=== PATIENT | female | born 1965 | race Two or more races ===

== ENCOUNTER 2024-10-20 20:58 | Emergency (ER) | payer MEDICAID, SELFPAY ==
[2024-10-20 21:05] VITALS: BP 187/75; PULSE 63; RESP 19; O2SAT 97; BMI 27.4
[2024-10-20 21:10] VITALS: PULSE 63; RESP 18; O2SAT 95
[2024-10-20 21:14] VITALS: TEMP 35.1
--- NOTE | 2024-10-20 21:53 | EDNOTE_ITS ---
ED General RME/HPI General Chief complaint: General Adult/Misc Complain Stated complaint: LOW BLOOD SUGAR Time Seen by Provider: 10/20/24 22:04 Source: patient and EMS Arrival date/time: 10/20/24 20:58 Mode of arrival: EMS Limitations: no limitations RME / HPI RME / HPI narrative: Dr. Carrera's Main ED Evaluation: 59-year-old female EH who presents to the emergency department for evaluation due to hypoglycemic episode. Per EMS report, at approximately 1900, the patient took 50 units of insulin and did not have any PO intake after. Blood sugar check on scene was 42. She was given D10 and then brought here to be checked out. Patient states she felt confused around 1930, was sweating, and was unable to move. She reports associated mild headache, abdominal pain, and shortness of breath. She denies any chest pain, N/V/D, fever, chills, cough, UTI symptoms or any other associated symptoms. Denies any tobacco or alcohol use. No known allergies. Past medical history: Hypertension Diabetes Mellitus 2 Hypercholesteremia Gallstones s/p Laparoscopic cholecystectomy by Dr. Hussein on 07/24/21 Social history: Nonsmoker. Nondrinker. No illicit drug use. PCP: [facility] Related Data Home Medications ?Medication ?Instructions ?Recorded ?Confirmed atenolol 25 mg tablet (Tenormin) 100 mg PO QAM #0 tabs 05/11/14 06/16/21 benazepril 20 mg tablet (Lotensin) 40 mg PO BID #0 tabs 10/07/14 06/16/21 hydrochlorothiazide 25 mg tablet 25 mg PO QAM #0 tabs 10/07/14 06/16/21 atorvastatin 10 mg tablet 10 mg PO QDAY 06/16/21 06/16/21 insulin glargine 100 unit/mL (3 50 unit subcut QAM 06/16/21 07/23/21 mL) subcutaneous pen (Basaglar KwikPen U-100 Insulin) insulin glargine 100 unit/mL (3 70 unit subcut QPM 06/16/21 07/23/21 mL) subcutaneous pen (Basaglar KwikPen U-100 Insulin) sitagliptin phosphate 50 1 tab PO BID 06/16/21 07/23/21 mg-metformin 1,000 mg tablet (Janumet) Previous Rx's ?Medication ?Instructions ?Recorded cephalexin 500 mg capsule 500 mg PO TID #21 caps 06/13/23 Allergies Allergy/AdvReac Type Severity Reaction Status Date / Time No Known Allergies Allergy Verified 05/15/23 23:33 Review of Systems Review of Systems Systems Reviewed: All systems reviewed, normal except as documented Past Medical History Past Medical History NEUROLOGIC: Negative Neurological Disorders or Seizures CARDIAC: Positive Cardiac Disorders and Hypertension; Negative Congestive Heart Failure RESPIRATORY: Negative Chronic Obstructive Pulmonary Disease (COPD) GASTROINTESTINAL: Positive Gastrointestinal Disorders, Hepatitis, Gall Bladder Disease and Obesity GENITOURINARY: Negative Genitourinary Disorders or Renal Disease REPRODUCTIVE: Positive Previous Pregnancies MUSCULOSKELETAL: Positive Musculoskeletal Disorders ENT: Negative Cataracts ENDOCRINE: Positive Endocrine Disorders and Diabetes Mellitus Type 2; Negative Diabetes Mellitus Type 1 HEMATOLOGIC: Negative Blood Disorders OTHER HISTORY: Positive Hospitalization and Chicken Pox; Negative Falls, Blood Transfusions, Blood Transfusion Reaction, Anesthesia Reactions, Organ Transplant, MRSA or Cancer Family History FAMILY HISTORY: Positive Family Cardiac Disorders; Negative Family Anesthesia Reaction Surgical History SURGICAL: Positive Section; Negative Cardiac Surgery, Endocrine Surgery, Ear Surgery, Eye Surgery, Oral Surgery, Throat Surgery, Abdominal Surgery, Neurologic Surgery or Organ Transplant Social History SMOKING STATUS: Never smoker SUBSTANCE USE: does not use ED Exam Narrative Physical exam: GENERAL: Patient is alert awake oriented x3 under no distress, laying down comfortably at 30-45?; does not look ill/ toxic. Patient has good eye contact. Patient is cooperative. VITALS: All vitals were reviewed and the pulse ox is 97% on room air, which is normal according to my interpretation. HEENT: Normocephalic, atraumatic and nontender. Pupils are equal and reactive to light and accommodation. Oral mucosa are moist. NECK: Supple, nontender, no meningismus, no JVD. CHEST: Nontender on palpation, no deformity and no crepitus. CARDIOVASCULAR: Heart regular rhythm no murmur or gallop rub or extra beats; not tachycardic. LUNGS: Clear to auscultation bilaterally with symmetrical chest rise. No laboring tachypnea or wheezing. No intercostal subcostal retraction. No rales and no rhonchi. ABDOMEN: Soft, flat, nontender at all, no guarding or rebound tenderness. There are no abnormal masses palpated. No pulsatile masses or bruits. Active and normal bowel sounds. GENITALIA: Not examined. RECTAL EXAM: Not done. EXTREMITIES: Nontender. No edema. No cyanosis. Patient is able to move all 4 extremities well. SKIN: Warm and dry, no rashes noted. MUSCULOSKELETAL: No lumbar or midline bony tenderness. There is no CVA tenderness. No paraspinal muscle spasm or tenderness. NEURO: Cranial nerves II through XII grossly intact. There is no focalization. GCS is 15. PSYCHIATRIC: Patient is in normal mood and affect, cooperative. General Limitations: Present no limitations Course Course Course Narrative: 2233: Sepsis alert initiated. Orders made at this time are congruent with ED Adult Sepsis Order List. Re-evaluation is to be completed. CXR is ordered for determining the etiology of shortness of breath. Quality Measures Current suspected stage: ruled out Possible source: unknown Blood cultures ordered: yes Antibiotic ordered: No Pertinent labs: 10/20/24 22:50 Lactic Acid 1.5 mMol/L (0.4-2.0) Procalcitonin 0.13 ng/ml (0.0-0.49) sepsis Orders Category Date Time Status EKG (ED ONLY) *Do not use* NOW Care 10/20/24 22:34 Completed Initiate Warming Therapy NOW Care 10/20/24 22:35 Active Insert IV NOW Care 10/20/24 22:34 Active EKG (ED Only) Stat Exams 10/20/24 22:34 Ordered XR chest 1V portable Stat Exams 10/20/24 22:34 Completed B-Type Natriuretic Peptide Stat Lab 10/20/24 22:50 Completed Blood Culture (Lab) Stat Lab 10/20/24 23:00 Received CBC Stat Lab 10/20/24 22:50 Completed Comprehensive Metabolic Panel Stat Lab 10/20/24 22:50 Completed Creatine Kinase Stat Lab 10/20/24 22:50 Completed Lactate (Lactic Acid) Stat Lab 10/20/24 22:50 Completed Procalcitonin Stat Lab 10/20/24 22:50 Completed Troponin I Stat Lab 10/20/24 22:50 Completed UA, C/S IF [Urinalysis, C/S if Indicated] Stat Lab 10/20/24 22:43 Completed Urine Culture Stat Lab 10/20/24 22:43 Received Vital Signs Vital signs: Vital Signs Pulse Rate 63 10/20/24 21:05 Respiratory Rate 19 10/20/24 21:05 Blood Pressure 187/75 H 10/20/24 21:05 Pulse Oximetry (%) 97 10/20/24 21:05 Oxygen Delivery Method Room Air 10/20/24 21:05 Procedures -ED EKG Interpretation #1: Date of EK10/20/24 Rate: 61 Interpretation: Interpreted by me EKG Impression: Normal sinus rhythm, No acute ST-T changes, No ectopy, Normal intervals and Normal axis Additional EKG comment: First-degree AV block. Possible old inferior wall [place] Patient data External records reviewed:: [facility] previous records and EMS form Clinical information provided by:: patient and EMS Social determinants that could affect healthcare access:: none Patient has the following chronic illnesses:: Hypertension Diabetes Mellitus 2 Hypercholesteremia Gallstones s/p Laparoscopic cholecystectomy by Dr. Hussein on 07/24/21 How is presenting disease/condition affected by chronic disease/condition?: u neffected by Evaluation data The following diagnostics were reviewed and interpreted by me:: lab results Lab and/or radiology exams considered but not ordered:: none Interpretation Summary: See narrative Medications Medications considered but not ordered:: None Medication administrations:: As above, if any Consultations Consultation(s) initiated? (list below): No Diagnosis Differential Diagnosis ED Complaint MDM: hypoglycemia, TIA, CVA, UTI, pneumonia, sepsis Most likely diagnosis given after review of the tests above:: see below Admission Indicated Admission indicated?: not indicated Explain why admission is indicated or not indicated:: See MDM narrative. Admission Request Was there a request for admission?: No Disposition Plan Disposition Plan: Discharge Discharge Attestation Discharge Attestation: The patient and all family members were given an opportunity to ask questions and understood the discharge instructions. Discharge instructions specifically effects, indications for sooner follow up or return to the emergency department, and the expected course of current diagnosis. Patient condition: Stable Medical Decision Making MDM Narrative MDM Narrative: Scribe Attestation: 10/20/24 Janae Dangelo am scribing for and in the presence of Dr. Carrera. Patient was brought in by ambulance from home due to altered mental status just prior to arrival. Patient states that she regularly takes 50 units of Basaglar insulin twice a day; she states that the second dose she takes it at 7 PM. She did take that but she forgot to eat afterwards. About 730 or close to 8:00 she started feeling diaphoresis confused and she could not move and she could barely talk. The paramedics were called and they found her blood sugar to be at 41 therefore they gave her D10 W and they brought her in upon arrival here in the emergency room her blood sugar was 156. Patient states that she was perfectly well before this happened and this is the first time that she has hypoglycemic episode in her life. She says that she always eats after each insulin but today she forgot. At the time she developed also a headache which right now is very little. She denies any chest pain or abdominal pain, she denies any nausea vomiting or diarrhea or fever chills. She denies coughing but she got short of breath. She denies UTI symptoms. Her past medical history is positive for hypertension and diabetes. She denies smoking or alcohol. We gave her a sandwich and also orange juice and she says that she is feeling much better and she is back to her normal. Patient is alert awake oriented x 3 under no distress and does not look ill or toxic. At 10:33 PM, patient's nurse informs me that her rectal temperature is even less than before. The initial rectal temperature was 95.2 upon arrival and now it is down to 94.8 again rectally. Therefore, I immediately announced sepsis overhead and started the workup. At 2:50 AM, all her workup came back negative except borderline elevation of her BUN and creatinine at 34 and 1.4 respectively; therefore patient will be discharged home with instructions that she needs to eat immediately after taking her insulin and also drink lots of water. She understands me very well. Her temperature is up to 98.0 right now. Provider Notation: Although this document has been carefully reviewed, there may still be some phonetic and other typographical errors. These errors are purely grammatical due to imperfections in the software program and should not be construed in any way to compromise the substance of the patient's medical care during this visit. Differential Diagnosis Differential Diagnosis: hypoglycemia, TIA, CVA, UTI, pneumonia, sepsis Lab Data 10/20/24 22:50 10/20/24 22:50 Labs: Lab Results 10/20/24 10/20/24 Range/Units 22:43 22:50 WBC 9.3 (3.6-11.0) Thou/mm3 RBC 3.52 L (4.00-5.20) Miln/mm3 Hgb 10.4 L (12.0-16.0) g/dL Hct 31.9 L (36.0-46.0) % MCV 91 (80-100) fL MCH 29.5 (25.0-35.0) pg MCHC 32.6 (31.0-37.0) g/dl RDW Std Deviation 43.3 (36.4-46.3) fL Plt Count 217 (140-440) Thou/mm3 Neut % (Auto) 72 (37-80) % Lymph % (Auto) 17 (10-50) % Mitchell % (Auto) 8 (0-12) % Eos % (Auto) 2 (0-10) % Baso % (Auto) 1 (0-2.5) % Neut # (Auto) 6.7 (1.8-7.7) Thou/mm3 Lymph # (Auto) 1.6 (1.0-4.8) Thou/mm3 Mitchell # (Auto) 0.7 (0.0-0.8) Thou/mm3 Eos # (Auto) 0.2 (0.0-0.5) Thou/mm3 Baso # (Auto) 0.1 (0.0-0.2) Thou/mm3 Immature Gran # (Auto) 0.10 H (0.00-0.00) Thou/mm3 Absolute Nucleated RBC 0.00 (0.00-0.00) Thou/mm3 Immature Gran % 1 H (0-0) % Nucleated RBC % 0 (0) /100 WBC Sodium 138 (136-145) mMol/L Potassium 4.1 (3.4-5.1) mMol/L Chloride 107 (98-107) mMol/L Carbon Dioxide 24.5 (20.0-31.0) mMol/L Anion Gap 7 (7-16) BUN 34 H (9-23) mg/dL Creatinine 1.4 H (0.6-1.3) mg/dL Estim Creat Clear Calc 38.6 L (>60) mL/min eGFR 43 L (60 - ) See Note BUN/Creatinine Ratio 24 H (12-20) Ratio Glucose 77 (74-106) mg/dL Calculated Osmolality 282 (275-295) Lactic Acid 1.5 (0.4-2.0) mMol/L Calcium 9.5 (8.3-10.6) mg/dL Corrected Calcium 9.5 (8.5-10.1) mg/dL Total Bilirubin 0.4 (0.3-1.2) mg/dL AST 22 (0-34) U/L ALT 21 (10-49) U/L Alkaline Phosphatase 127 H (46-116) U/L Total Creatine Kinase 144 (34-171) U/L Troponin I < 0.020 (0.0-0.045) ng/mL B-Natriuretic Peptide 40 (0-100) pg/mL Total Protein 6.6 (5.7-8.2) gm/dL Albumin 4.5 (3.4-4.8) gm/dL Globulin 2.1 L (2.3-3.5) gm/dL Albumin/Globulin Ratio 2.1 (1.2-2.2) Procalcitonin 0.13 (0.0-0.49) ng/ml Ur Collection Type Clean Catch Urine Color Colorless A (Lt Yel-Yel) Urine Clarity Clear (Clear/Hazy) Urine pH 6.5 (5.0-7.0) Ur Specific [place] 1.013 (1.001-1.035) Urine Protein 2+ A (Neg - Trace) Urine Glucose (UA) 4+ A (Negative) Urine Ketones Negative (Negative) Urine Blood Negative (Negative) Urine Nitrite Negative (Negative) Urine Bilirubin Negative (Negative) Urine Urobilinogen (Auto) Negative (0.0-1.0) mg/dL Ur Leukocyte Esterase Negative (Negative) Urine RBC 1 (0-3) /hpf Urine WBC 15 H (0-5) /hpf Ur Squamous Epith Cells 0 (0-5) /hpf Urine Bacteria None (None) Hyaline Casts < 1 (0-1) /hpf Ur Culture Indicated? Yes Discharge Plan Plan Patient Disposition: HOME (Self Care) Prescriptions/Referrals Prescriptions/Med Rec: No Action atenolol [Tenormin] 25 MG tablet 100 mg PO QAM Qty: 0 benazepril [Lotensin] 20 MG tablet 40 mg PO BID Qty: 0 hydrochlorothiazide 25 MG tablet 25 mg PO QAM Qty: 0 atorvastatin 10 mg Tablet 10 mg PO QDAY Janumet 50-1,000 mg Tablet 1 tab PO BID Basaglar KwikPen U-100 Insulin 100 unit/mL (3 mL) insulin pen 70 unit SUBCUT QPM Patient Comments: INJECT 40 UNITS SUBCUTANEOUSLY EVERY MORNING AND 70 UNITS EVERY EVENING Basaglar KwikPen U-100 Insulin 100 unit/mL (3 mL) insulin pen 50 unit SUBCUT QAM Patient Comments: INJECT 40 UNITS SUBCUTANEOUSLY EVERY MORNING AND 70 UNITS EVERY EVENING cephalexin 500 mg capsule 500 mg PO TID Qty: 21 0RF Referrals: Wally Lorenzo MD [Primary Care Provider] - 10/23/24 10:00 am Problem List Clinical Impression: Hypoglycemia Patient/Caregiver Discharge Instructions Education Materials: Hypoglycemia (Low Blood Sugar) Print Language: Luxembourgish Stand Alone Forms: Marilyn Award Info., Patient Portal Info Letter
[2024-10-20 22:33] VITALS: BP 184/79; PULSE 89; RESP 16; TEMP 34.9; O2SAT 100
--- NOTE | 2024-10-20 22:34 | XR_ITS ---
Examination: AP chest single view Technique one AP portable upright chest single view Exam date and time: October 20, 2024 11:16 PM Comparison December 29, 2023 Indications: Coughing shortness of breath today. Findings: Mild enlargement cardiac contour Moderate central vascular congestion. No lobar pneumonia or pulmonary edema Moderate osteopenia Impression: Moderate central vascular congestion
[2024-10-20 22:36] VITALS: TEMP 34.9
[2024-10-20 22:51] LABS: Collection Type, Urine Clean Catch; Squamous Epithelial Cell,Urine 0 /hpf (0-5)
[2024-10-20 23:04] LABS: Bilirubin,Urine Negative (Negative); Blood,Urine Negative (Negative); Clarity,Urine Clear (Clear/Hazy); Color,Urine Colorless (Lt Yel-Yel); Glucose, Urine 4+ (Negative); Hyaline Casts,Urine < 1 /hpf (0-1); Ketones,Urine Negative (Negative); Leukocyte Esterase,Urine Negative (Negative); Nitrite,Urine Negative (Negative); PH,Urine 6.5 (5.0-7.0); Protein,Urine 2+ (Neg - Trace); RBC,Urine 1 /hpf (0-3); Specific Gravity,Urine 1.013 (1.001-1.035); Urobilinogen,Urine Negative mg/dL (0.0-1.0); WBC,Urine 15 /hpf (0-5)
[2024-10-20 23:07] LABS: Lactate (Lactic Acid) 1.5 mMol/L (0.4-2.0)
[2024-10-20 23:14] LABS: Culture Indicated,Urine Yes
[2024-10-20 23:17] LABS: Basophils # (Auto) 0.1 Thou/mm3 (0.0-0.2); Basophils % (Auto) 1 % (0-2.5); Eosinophils # (Auto) 0.2 Thou/mm3 (0.0-0.5); Eosinophils % (Auto) 2 % (0-10); Hematocrit 31.9 % (36.0-46.0); Hemoglobin 10.4 g/dL (12.0-16.0); Immature Granulocytes % (Auto) 1 % (0-0); Lymphocytes # (Auto) 1.6 Thou/mm3 (1.0-4.8); Lymphocytes % (Auto) 17 % (10-50); Mean Corpuscular HGB Conc 32.6 g/dl (31.0-37.0); Mean Corpuscular Hemoglobin 29.5 pg (25.0-35.0); Mean Corpuscular Volume 91 fL (80-100); Monocytes # (Auto) 0.7 Thou/mm3 (0.0-0.8); Monocytes % (Auto) 8 % (0-12); Neutrophils # (Auto) 6.7 Thou/mm3 (1.8-7.7); Neutrophils % (Auto) 72 % (37-80); Nucleated Red Blood Cell % 0 /100 WBC (0); Platelet Count 217 Thou/mm3 (140-440); RDW Standard Deviation 43.3 fL (36.4-46.3); Red Blood Count 3.52 Miln/mm3 (4.00-5.20); White Blood Count 9.3 Thou/mm3 (3.6-11.0)
[2024-10-20 23:38] LABS: Alanine Aminotransferase 21 U/L (10-49); Albumin, Serum 4.5 gm/dL (3.4-4.8); Albumin/Globulin Ratio 2.1 (1.2-2.2); Alkaline Phosphatase 127 U/L (46-116); Anion Gap 7 (7-16); Aspartate Amino Transferase 22 U/L (0-34); BUN/Creatinine Ratio 24 Ratio (12-20); Bilirubin,Total 0.4 mg/dL (0.3-1.2); Blood Urea Nitrogen 34 mg/dL (9-23); Calcium 9.5 mg/dL (8.3-10.6); Calcium (Corrected) 9.5 mg/dL (8.5-10.1); Carbon Dioxide 24.5 mMol/L (20.0-31.0); Chloride 107 mMol/L (98-107); Creatine Kinase 144 U/L (34-171); Creatinine (Component) 1.4 mg/dL (0.6-1.3); Estimated Creatinine Clearance 38.6 mL/min (>60); Globulin 2.1 gm/dL (2.3-3.5); Glucose 77 mg/dL (74-106); Osmolality,Calculated 282 (275-295); Potassium 4.1 mMol/L (3.4-5.1); Sodium 138 mMol/L (136-145); Total Protein 6.6 gm/dL (5.7-8.2); Troponin I < 0.020 ng/mL (0.0-0.045); eGFR 43 See Note
[2024-10-20 23:44] LABS: B-Type Natriuretic Peptide 40 pg/mL (0-100); Procalcitonin 0.13 ng/ml (0.0-0.49)
[2024-10-21] VITALS: BP 176/66; PULSE 70; RESP 16; TEMP 36.4; O2SAT 97
[2024-10-21 01:00] VITALS: BP 163/58; PULSE 77; RESP 16; TEMP 36.7; O2SAT 99
--- NOTE | 2024-10-21 01:10 | PC.NURSE ---
Pt oral temp 98.[address] Carrera, SIDDHARTHA sanchez and give Pt warm blankets
[2024-10-21] MEDS: ACETAMINOPHEN 500 MG TABLET 1000 MG PO (03:06)
[2024-10-21 03:10] VITALS: BP 177/65; PULSE 61; RESP 16; TEMP 36.8; O2SAT 99
== END 2024-10-21 03:09 | disposition home or self-care (01) ==
PROVIDERS: Emergency Provider Emergency Medicine; PCP Family Medicine
DX: E11.649 Type 2 diabetes mellitus with hypoglycemia without coma (principal); I44.0 Atrioventricular block, first degree; I10 Essential (primary) hypertension; E78.00 Pure hypercholesterolemia, unspecified; Z79.84 Long term (current) use of oral hypoglycemic drugs; Z79.4 Long term (current) use of insulin
CPT/HCPCS: 36415; 71045; 80053; 81001; 82550; 83605; 83880; 84145; 84484; 85025; 87040; 87086; 93005; 99283; A9270

== ENCOUNTER 2025-09-14 05:32 | Emergency (ER) | payer BC, SELFPAY ==
[2025-09-14] VITALS (8 sets, daily range): BP systolic 178–249; BP diastolic 63–95; PULSE 78–88; RESP 15–33; TEMP 36.5–36.8; O2SAT 97–100; BMI 32.8
--- NOTE | 2025-09-14 05:37 | EKG_ITS ---
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
--- NOTE | 2025-09-14 06:07 | PD.EDADULT ---
ED General RME/HPI General Chief complaint: General Adult/Misc Complain Stated complaint: CHEST, NECK ,AND ABD PAIN Time Seen by Provider: 09/14/25 06:06 Arrival date/time: 09/14/25 05:32 RME / HPI RME / HPI narrative: Maureen is a 60 y/o female with PMHx of Insulin dependent type II DM, HLD and HTN who comes in for evaluation of acute onset of headache with associated nausea, weakness, rated 7 out of 10 while waking up to go use the restroom. Patient reports she was woke up to use the restroom and had no urinary symptoms, however felt weak using the restroom. She said she has not had symptoms like these before, and she has also complaining of some epigastric abdominal pain. Denies any blurry vision or changes with vision at this time. She has not taken any medicines to help her symptoms. She says her blood pressure usually runs in the 180s to 200s at home. She says she sees a provider at [facility] for [facility] medicines including her antihypertensives. She also takes insulin for diabetes. She says that her account manager education is Dr. Torres in [place] who did recent testing on her which was all normal. She denies throwing up. She says she was able to walk. She denies any family history of intracranial bleeding or CVA. She denies a history of stroke. She takes her medicines as prescribed. She has no other complaints at this time. Related Data Home Medications ?Medication ?Instructions ?Recorded ?Confirmed atenolol 25 mg tablet (Tenormin) 100 mg PO QAM #0 tabs 05/11/14 06/16/21 benazepril 20 mg tablet (Lotensin) 40 mg PO BID #0 tabs 10/07/14 06/16/21 hydrochlorothiazide 25 mg tablet 25 mg PO QAM #0 tabs 10/07/14 06/16/21 atorvastatin 10 mg tablet 10 mg PO QDAY 06/16/21 06/16/21 insulin glargine 100 unit/mL (3 50 unit subcut QAM 06/16/21 07/23/21 mL) subcutaneous pen (Basaglar KwikPen U-100 Insulin) insulin glargine 100 unit/mL (3 70 unit subcut QPM 06/16/21 07/23/21 mL) subcutaneous pen (Basaglar KwikPen U-100 Insulin) sitagliptin phosphate 50 1 tab PO BID 06/16/21 07/23/21 mg-metformin 1,000 mg tablet (Janumet) Previous Rx's ?Medication ?Instructions ?Recorded cephalexin 500 mg capsule 500 mg PO TID #21 caps 06/13/23 Allergies Allergy/AdvReac Type Severity Reaction Status Date / Time No Known Allergies Allergy Verified 09/14/25 05:37 Review of Systems Review of Systems Narrative Review of Systems: 12 point ROS reviewed and is otherwise negative unless stated directly in the HPI ED Exam Narrative Physical exam: General: AAOx3, NAD, HEENT: Moist mucous membranes, conjunctiva clear, EOMI, PERRLA, Cardiovascular: S1, S2, radial pulses +2 bilat, RRR Pulmonary: CTAB bilat no cough, no wheezing GI: Slight tenderness to palpitation upon epigastric region, no guarding, rigidity, rebound tenderness or distension Extremities: No presence of trace or pitting edema in lower extremities bilaterally, dorsalis pedis pulses +2 bilaterally Neuro: AAOx3, no focal motor or sensory deficits in the UE or LE bilat, finger to nose wnl, pt able to walk, heel to cruz wnl bilat, - rhomberg testing, able to ambulate Psych: Good judgement, thought and behavior Course Quality Measures none Orders Category Date Time Status EKG (ED ONLY) *Do not use* NOW Care 09/14/25 05:37 Completed Insert IV NOW Care 09/14/25 06:[address] head/brain wo con Stat Exams 09/14/25 06:23 Completed EKG (ED Only) Stat Exams 09/14/25 05:37 Draft XR chest 1V portable Stat Exams 09/14/25 06:32 Completed CBC Stat Lab 09/14/25 06:46 Completed CMP [Comprehensive Metabolic Panel] Stat Lab 09/14/25 06:46 Completed Drug Screen,Urine Stat Lab 09/14/25 06:50 Completed Lactic Acid [Lactate (Lactic Acid)] Stat Lab 09/14/25 08:10 Completed Mag [Magnesium] Stat Lab 09/14/25 06:46 Completed Troponin I Stat Lab 09/14/25 06:46 Completed Urinalysis, C/S if Indicated Stat Lab 09/14/25 06:50 Completed Acetaminophen Tab [Tylenol ES Tab] Med 09/14/25 06:31 Discontinued 1,000 mg PO X1 ONE Labetalol IV [Trandate IV] Med 09/14/25 06:26 Discontinued 10 mg IVP X1 ONE Lidocaine 2% Viscous [Xylocaine 2% Viscous] Med 09/14/25 06:35 Discontinued 15 ml PO X1 ONE Metoclopramide Inj [Reglan Inj] Med 09/14/25 06:40 Discontinued 10 mg IVP X1 ONE Pantoprazole Inj [Protonix Inj] Med 09/14/25 06:35 Discontinued 40 mg IVP X1 ONE Ringers Lactated 1000 ml [Lactated Ringers] 1,000 ml Med 09/14/25 07:26 Discontinued IV 999 mls/hr mg Hyd/Al Hyd/Leena Susp [Maalox Susp] Med 09/14/25 06:35 Discontinued 30 ml PO X1 ONE Vital Signs Vital signs: Vital Signs Temperature 98.2 F 09/14/25 05:33 Pulse Rate 88 09/14/25 05:33 Respiratory Rate 18 09/14/25 05:33 Blood Pressure 242/93 H 09/14/25 05:33 Pulse Oximetry (%) 97 09/14/25 05:33 Oxygen Delivery Method Room Air 09/14/25 05:33 Discharge Plan Plan Patient Disposition: HOME (Self Care) Prescriptions/Referrals Prescriptions/Med Rec: No Action atenolol [Tenormin] 25 MG tablet 100 mg PO QAM Qty: 0 benazepril [Lotensin] 20 MG tablet 40 mg PO BID Qty: 0 hydrochlorothiazide 25 MG tablet 25 mg PO QAM Qty: 0 atorvastatin 10 mg Tablet 10 mg PO QDAY Janumet 50-1,000 mg Tablet 1 tab PO BID Basaglar KwikPen U-100 Insulin 100 unit/mL (3 mL) insulin pen 70 unit SUBCUT QPM Patient Comments: INJECT 40 UNITS SUBCUTANEOUSLY EVERY MORNING AND 70 UNITS EVERY EVENING Basaglar KwikPen U-100 Insulin 100 unit/mL (3 mL) insulin pen 50 unit SUBCUT QAM Patient Comments: INJECT 40 UNITS SUBCUTANEOUSLY EVERY MORNING AND 70 UNITS EVERY EVENING cephalexin 500 mg capsule 500 mg PO TID Qty: 21 0RF Referrals: No Primary/Family,Physician [Primary Care Provider] - In 1 week Problem List Clinical Impression: Hypertensive emergency Patient/Caregiver Discharge Instructions Discharge Activity: activity as tolerated Additional Instructions: Discharge instructions Follow-up with your PCP within 1 week Take your medicines as prescribed Speak with your PCP in regards to your blood pressure medicines. Your blood pressure was elevated in the 240s today, speak with your doctor for further mangement of your high blood pressure. Your creatinine (a marker of kidney function) was slightly elevated in the ER. Follow-up with your PCP within 1 week and have them do an additional blood draw to check your kidney function. If you continue to have nausea, headache, dizziness or weakness, please return to the ER immediately. Return to ED if your symptoms worsen or return Instrucciones para el magnolia: Visite a salvador m?dico de cabecera dentro de sherri semana. [place] zahraa medicamentos seg?n lo prescrito. Hable con salvador m?dico de cabecera sobre zahraa medicamentos para la presi?n arterial. [place] presi?n arterial se elev? a m?s de 240 hoy. Consulte con salvador m?dico para un mejor control de salvador presi?n arterial. [place] creatinina (un indicador de la funci?n renal) se elev? ligeramente en la alysa de emergencias. Visite a salvador m?dico de cabecera dentro de sherri semana y solicite sherri extracci?n de veronica adicional para verificar salvador funci?n renal. Si contin?a con n?useas, dolor de taisha, mareos o debilidad, regrese a la alysa de emergencias inmediatamente. Regrese a la alysa de emergencias si zahraa s?ntomas empeoran o regresan. Print Language: [place] Stand Alone Forms: Marilyn Award Info., Patient Portal Info Letter MDM Narrative MDM hospital course (for use when minimal MDM required): 0635: CT head w/o contrast, GI cocktail (Protonix, Maalox, Reglan and Viscous Lidocaine), Labetalol IV 10 mg x1, labs, COVID+Flu, troponin, and UA. Tylenol 1 gram 0730: Cr 1.4, initiate 1 L LR bolus. Ordered lactate for slight acidosis. 0746: Head CT no acute hemorrhage, mass effect or midline shift. CXR shows mild vascular congestion 0820: Pt is medically cleared for discharge at this time. Pt reports improvement in her symptoms, is able to walk. Recommended to follow up with her PCP for further management of her antihypertensives and HTN. She will also need to repeat renal panel in one week with her PCP as her Cr was slightly elevated at 1.4. Unsure what her baseline is, and this elevated could be a contributor to the diagnosis of hypertensive emergency. EKG Interpretation EKG #1: EKG Interpretation: Sinus rhythm, rate 82, QT 392, no ST changes Medication Administration(s) Medication Administration History Discontinued Medications Acetaminophen (Acetaminophen 500 Mg Tablet) 1,000 mg PO X1 ONE Stop: 09/14/25 06:32 Last Admin: 09/14/25 07:24 Dose: 1,000 mg Documented By: JAQUELINE Al Hydrox/Mg Hydrox/Simethicone (Mg Hyd/Al Hyd/Leena (Maalox Reg) Susp 30 Ml Udc) 30 ml PO X1 ONE Stop: 09/14/25 06:36 Last Admin: 09/14/25 07:21 Dose: 30 ml Documented By: JAQUELINE Lactated Ringer's (Lactated Ringers) 1,000 mls @ 999 mls/hr IV .Q1H1M ONE Stop: 09/14/25 08:26 Last Admin: 09/14/25 07:54 Dose: 999 mls/hr Documented By: JAQUELINE Labetalol HCl (Labetalol Inj 5 Mg/Ml Vial 20 Ml) 10 mg IVP X1 ONE Stop: 09/14/25 06:27 Last Admin: 09/14/25 06:39 Dose: 10 mg Documented By: DENEEN Lidocaine HCl (Lidocaine Viscous 2% 15 Ml Udc) 15 ml PO X1 ONE Stop: 09/14/25 06:36 Last Admin: 09/14/25 07:21 Dose: 15 ml Documented By: JAQUELINE Metoclopramide HCl (Metoclopramide Inj 5 Mg/Ml Vial 2 Ml) 10 mg IVP X1 ONE; Protocol Stop: 09/14/25 06:41 Last Admin: 09/14/25 07:23 Dose: 10 mg Documented By: JAQUELINE Pantoprazole Sodium (Pantoprazole Inj 40 Mg Vial) 40 mg IVP X1 ONE Stop: 09/14/25 06:36 Last Admin: 09/14/25 07:21 Dose: 40 mg Documented By: JAQUELINE Diagnosis Diagnoses ruled out and/or further discussions: Hypertensive emergency, Gastritis, Vertigo, CVA, hypertensive encephalopathy
--- NOTE | 2025-09-14 06:23 | XR_ITS ---
Examination: CT brain head without contrast. 2-D sagittal coronal reconstructions Date and time of exam: September 14, 2025, 0700 hours INDICATIONS: Onset headaches weakness today CTDI: vol (mGy): 47.6 DLP: (mGycm): 958 Technique: Multiple CT axial sections of the brain have been obtained, 5 mm slice thickness. Contrast has not been administered. 2-D sagittal, coronal reconstructions have been obtained Low dose protocols were performed. One or more of the following dose reduction techniques were used; automated exposure control, adjustment of the mA and/or KV according to patient size, use of iterative reconstruction technique. Findings: No significant ventricular enlargement. Intra-axial or extra-axial hemorrhage density is not seen. No mass effect or midline shift Basal cisterns are not remarkable. Fourth ventricle is midline. Cranial vault intact. Impression: Negative for acute hemorrhage, mass effect or midline shift Advise clinical correlation and follow-up accordingly
--- NOTE | 2025-09-14 06:32 | XR_ITS ---
EXAMINATION: PA chest single view TECHNIQUE: 1. Upright PA chest single view Date and time: September 14, 2025, 0713 hours INDICATIONS: Chest pain today with elevated blood pressure FINDINGS: Normal heart size Mild prominence pulmonary vasculature. No pneumonia or pulmonary edema Moderate osteopenia IMPRESSION: Mild prominence pulmonary vasculature
[2025-09-14] MEDS: LABETALOL INJ 5 MG/ML VIAL 20 ML 10 MG IVP (06:39)
[2025-09-14 06:58] LABS: Collection Type, Urine Catheter
[2025-09-14 07:04] LABS: Basophils # (Auto) 0.1 Thou/mm3 (0.0-0.2); Basophils % (Auto) 1 % (0-2.5); Eosinophils # (Auto) 0.1 Thou/mm3 (0.0-0.5); Eosinophils % (Auto) 2 % (0-10); Hematocrit 34.0 % (36.0-46.0); Hemoglobin 10.9 g/dL (12.0-16.0); Immature Granulocytes Auto 0.11 Thou/mm3 (0.00-0.00); Lymphocytes # (Auto) 1.1 Thou/mm3 (1.0-4.8); Lymphocytes % (Auto) 14 % (10-50); Mean Corpuscular HGB Conc 32.1 g/dl (31.0-37.0); Mean Corpuscular Hemoglobin 28.5 pg (25.0-35.0); Mean Corpuscular Volume 89 fL (80-100); Monocytes # (Auto) 0.4 Thou/mm3 (0.0-0.8); Monocytes % (Auto) 5 % (0-12); Neutrophils # (Auto) 5.9 Thou/mm3 (1.8-7.7); Neutrophils % (Auto) 77 % (37-80); Nucleated Red Blood Cell # 0.00 Thou/mm3 (0.00-0.00); Nucleated Red Blood Cell % 0 /100 WBC (0); Platelet Count 232 Thou/mm3 (140-440); RDW Standard Deviation 44.9 fL (36.4-46.3); Red Blood Count 3.83 Miln/mm3 (4.00-5.20); White Blood Count 7.7 Thou/mm3 (3.6-11.0)
[2025-09-14 07:12] LABS: Amphetamine/Methamp Scrn,U Negative (Negative); Barbiturate Screen,Urine Negative (Negative); Benzodiazepines Screen,Urine Negative (Negative); Benzoylecgonine Screen, Ur Negative (Negative); Fentanyl Screen,Urine Negative (Negative); Opiate Screen,Urine Negative (Negative); THC Screen,Urine Negative (Negative)
[2025-09-14 07:17] LABS: Bilirubin,Urine Negative (Negative); Blood,Urine Trace (Negative); Clarity,Urine Clear (Clear/Hazy); Color,Urine Colorless (Lt Yel-Yel); Culture Indicated,Urine Not Indicated; Glucose, Urine 4+ (Negative); Hyaline Casts,Urine < 1 /hpf (0-1); Ketones,Urine Negative (Negative); Leukocyte Esterase,Urine Negative (Negative); Nitrite,Urine Negative (Negative); PH,Urine 6.5 (5.0-7.0); Protein,Urine 2+ (Neg - Trace); RBC,Urine 3 /hpf (0-3); Specific Gravity,Urine 1.012 (1.001-1.035); Squamous Epithelial Cell,Urine < 1 /hpf (0-5); Urobilinogen,Urine Negative mg/dL (0.0-1.0); WBC,Urine 7 /hpf (0-5)
[2025-09-14 07:19] LABS: Alanine Aminotransferase 14 U/L (10-49); Albumin, Serum 4.6 gm/dL (3.4-4.8); Albumin/Globulin Ratio 1.8 (1.2-2.2); Alkaline Phosphatase 153 U/L (46-116); Anion Gap 11 (7-16); Aspartate Amino Transferase 17 U/L (0-34); BUN/Creatinine Ratio 18 Ratio (12-20); Bilirubin,Total 0.5 mg/dL (0.3-1.2); Blood Urea Nitrogen 25 mg/dL (9-23); Calcium 9.3 mg/dL (8.3-10.6); Calcium (Corrected) 9.3 mg/dL (8.5-10.1); Carbon Dioxide 19.4 mMol/L (20.0-31.0); Chloride 109 mMol/L (98-107); Creatinine (Component) 1.4 mg/dL (0.6-1.3); Estimated Creatinine Clearance 40.1 mL/min (>60); Globulin 2.6 gm/dL (2.3-3.5); Glucose 218 mg/dL (74-106); Magnesium 2.1 mg/dL (1.6-2.6); Osmolality,Calculated 288 (275-295); Potassium 4.6 mMol/L (3.4-5.1); Sodium 139 mMol/L (136-145); Total Protein 7.2 gm/dL (5.7-8.2); Troponin I < 0.020 ng/mL (0.0-0.045); eGFR 43 See Note
[2025-09-14] MEDS: MG HYD/AL HYD/SIME (Maalox Reg) SUSP 30 ML UDC PO (07:21)
[2025-09-14] MEDS: LIDOCAINE VISCOUS 2% 15 ML UDC PO (07:21)
[2025-09-14] MEDS: METOCLOPRAMIDE INJ 5 MG/ML VIAL 2 ML 10 MG IVP (07:23)
[2025-09-14] MEDS: ACETAMINOPHEN 500 MG TABLET 1000 MG PO (07:24)
[2025-09-14] MEDS: RINGERS LACTATED 1000 ML 1,000 ML 999 ML IV (07:54)
[2025-09-14 08:23] LABS: Lactate (Lactic Acid) 1.5 mMol/L (0.4-2.0)
== END 2025-09-14 11:44 | disposition home or self-care (01) ==
DX: I16.1 Hypertensive emergency (principal); E11.9 Type 2 diabetes mellitus without complications; E78.5 Hyperlipidemia, unspecified; I10 Essential (primary) hypertension; Z79.4 Long term (current) use of insulin; Z79.84 Long term (current) use of oral hypoglycemic drugs
CPT/HCPCS: 36415; 70450; 71045; 80053; 80307; 81001; 83605; 83735; 84484; 85025; 87502; 93005; 96361; 96374; 96375; 99283; J2470; J2765; J3490; J7120; A9270; J1920

== ENCOUNTER 2025-09-27 18:11 | Emergency (ER) | payer BC, SELFPAY ==
[2025-09-27 19:17] VITALS: BP 239/86; BP 246/93; PULSE 84; RESP 18; TEMP 36.9; O2SAT 98
[2025-09-27 19:18] VITALS: BMI 31.5
--- NOTE | 2025-09-27 19:31 | PD.EDRME ---
Rapid Medical Screening Exam E Arrival date/time: 09/27/25 18:11 60F with history of HTN and DM presents to ED with continued elevated BP. Patient was here 2 weeks ago for this. Patient went to PCP who added clonidine patches to HTN regimen. Patient had some blurry vision and some L-sided CP earlier today, but they have resolved. Chief Complaint: General Adult/Misc Complain Vital signs: Vital Signs Temperature 98.5 F 09/27/25 19:17 Pulse Rate 84 09/27/25 19:17 Respiratory Rate 18 09/27/25 19:17 Blood Pressure 246/93 H 09/27/25 19:17 Pulse Oximetry (%) 98 09/27/25 19:17 Oxygen Delivery Method Room Air 09/27/25 19:17 Exam: Normal speech. Calm. Clinical Impression: Hypertensive emergency/urgency vs brain bleed vs HTN vs ACS
--- NOTE | 2025-09-27 19:42 | PC.NURSE ---
PT WAS CALLED TO GET BLOOD DRAW, BUT PT AND PT DAUGHTER SAID THEY WILL GO HOME, I INFORMED THEM THAT BLOOD TEST,CT AND MED IS ORDERED BUT STILL PT WANTS TO GO.
== END 2025-09-27 20:40 | disposition left against medical advice (07) ==
PROVIDERS: Emergency Provider Emergency Medicine
DX: I10 Essential (primary) hypertension (principal); Z53.29 Procedure and treatment not carried out because of patient's decision for other reasons
CPT/HCPCS: 80053; 84484; 85025; 99281